=== PATIENT | female | born 1990 | race Caucasian/White ===

== ENCOUNTER 2024-03-06 17:51 | Emergency (ER) | payer MEDICAID, SELFPAY ==
[2024-03-06 17:51] VITALS: BP 136/61; PULSE 96; RESP 18; TEMP 37.1; O2SAT 98; BMI 23.3
[2024-03-06 18:20] LABS: Mucous, Urine 0 SEEN /hpf (<or=2+); Red Blood Cells-Urine 0 SEEN /hpf (0-5); White Blood Cells 0 SEEN /hpf (0-5)
[2024-03-06 18:23] LABS: Color, Urine Yellow (Yellow); Glucose, Dipstick Normal (Normal); Ketone-Dipstick Negative (Negative); Leukocyte Esterase-Dipstick Negative /ul (Negative); Nitrite-Dipstick Negative (Negative); Occult Blood-Urine Negative /ul (Negative); Protein-Dipstick Negative (Negative); Urine Bilirubin Dipstick Negative (Negative); Urine Clarity Clear (Clear); Urine Urobilinogen Normal (Normal)
--- NOTE | 2024-03-06 18:31 | EX.ED.DYSGE1 ---
HPI History of Present Illness Chief Complaint: Complaint Detail of Chief Complaint: Urinary symptoms Informant: patient Onset/Context/Timing Onset: Yesterday Context: Sudden Onset Timing: Intermittent Quality: Frequency, urgency and dysuria Location: Current Severity: Mild Maximum Severity: Severe Worsened by: Urinating Relieved by: Nothing Associated Symptoms Associated Symptoms: None Narrative Narrative: Patient is a 33-year-old G3, P1 Ab1 (spontaneous female who is approximately 4.5 months gestation who presents with dysuria, urgency and frequency. Patient complains of pain in the suprapubic area. She denies vomiting. Denies flank pain. She denies fever or chills. She has not had a urinary tract infection in 1 year. She states she gets significant yeast infection with penicillin. Prior similar symptoms: Yes Recent Illness/Hospitalization: No PFSH PFSH Medical History Second trimester Home Medications ?Medication ?Instructions ?Recorded ?Last Taken ?Type nitrofurantoin 100 mg PO Q12 #14 CAPSULES 03/06/24 Unknown Rx monohydrate/macrocrystals 100 mg capsule phenazopyridine 200 mg tablet 200 mg PO TID 6 doses #6 tabs 03/06/24 Unknown Rx (Pyridium) Allergy/AdvReac Type Severity Reaction Status Date / Time latex Allergy Intermediate Rash Verified 03/06/24 18:43 Penicillins (PCN) Allergy Intermediate Rash Verified 03/06/24 18:43 Social History Smoking Status: Light Smoker (<10/day) ROS ROS ED Constitutional Constitutional ED: Denies chills, fever(s), subjective or sweats Gastrointestinal Gastrointestinal: Reports abdominal pain; Denies diarrhea or vomiting Genitourinary Genitourinary ED: Reports dysuria, LMP (females 10-50) Details: Comment: (4-1/2 months gestation) and urinary frequency; Denies hematuria Musculoskeletal Musculoskeletal: Denies back pain Integumentary Denies rash Neurologic Neurologic: Denies weakness EXAM Physical Exam Const Vital Signs: 03/06/24 17:51 Temperature 98.8 F Temperature Source Oral Pulse Rate 96 Respiratory Rate 18 Blood Pressure 136/61 H Blood Pressure Mean 86 Pulse Ox 98 Oxygen Delivery Method Room Air Positive well nourished and well developed Constitutional Narrative: Patient appears uncomfortable. She was holding her hand against her abdomen in the suprapubic area when she was walking from triage to the examination room General Appearance ED: well developed; Negative for pallor HEENT Reports moist mucous membranes Eyes PERRL and EOMs intact bilaterally Resp normal respiratory effort and clear to auscultation bilaterally Cardio regular rate and regular rhythm GI normal to inspection, nondistended, normoactive bowel sounds, non-distended and no masses; Negative for non-tender or hepatosplenomegaly Palpation: soft and tender suprapubic Back/Spine no CVA tenderness Neuro oriented x3 and CN's II-XII intact bilaterally Sensorium / Orientation: alert Psych mental status grossly normal Skin no rashes or lesions noted, no wounds and skin turgor normal General Skin Exam: Negative for jaundice or pallor MDM MDM MDM Narrative Medical decision making narrative: Patient presents with urinary symptoms. She is going every 30 minutes. Because she is going frequently her urine may not appear infected. Lab Data Attestation: I reviewed the patient's lab results. Lab results narrative: Macro is unremarkable. Micro does not reveal pyuria however patient does have 2+ bacteria and is urinating every 30 minutes. Since she has urinary symptoms with 2+ bacteria and the specimen is not contaminated will send culture since she is and treat with Macrobid. Labs: Laboratory Results - last 24 hr 03/06/24 17:59 Urine Color Yellow Urine Clarity Clear Urine pH 6.0 Ur Specific [place] 1.020 Urine Protein Negative Urine Glucose (UA) Normal Urine Ketones Negative Urine Occult Blood Negative Urine Nitrite Negative Urine Bilirubin Negative Urine Urobilinogen Normal Ur Leukocyte Esterase Negative Urine RBC 0 SEEN Urine WBC 0 SEEN Ur Squamous Epith Cells 0-5 SEEN Ur Transition Epith Cell 0-5 SEEN Calcium Oxalate Crystal 1+ Amorphous Sediment 1+ Urine Bacteria 2+ Fine Granular Casts 0-5 SEEN Urine Mucus 0 SEEN Discharge Plan Triage Chief Complaint: Complaint ED Provider: Gilles Santiago Dx/Rx/DC Orders Clinical Impression: Acute cystitis during in second trimester, Elevated blood-pressure reading without diagnosis of hypertension Prescriptions: New nitrofurantoin monohyd/m-cryst 100 mg capsule 100 mg PO Q12 Qty: 14 0RF phenazopyridine [Pyridium] 200 mg tablet 200 mg PO TID Qty: 6 0RF Primary Care Provider: Care Physician,No Primary Referrals: Care Physician,No Primary [Primary Care Provider] - Doctor,Your [Non-Staff] - 3-5 Days Print Language: Romansh Disposition Disposition: Home, Self Care
[2024-03-06 18:35] LABS: Amorphous Sediment 1+; Bacteria 2+ /hpf (None Seen); Calcium Oxalate Crystals Ur 1+ /hpf (<or=2+); Fine Granular Cast- Urine 0-5 SEEN /lpf (0-5); Squamous Epithelial Cells - UA 0-5 SEEN /hpf (5-10); Transitional Epithelial - Ur 0-5 SEEN /hpf (0-5)
[2024-03-06] MEDS: Nitrofurantoin Macrocrystals 100 MG Capsule PO (18:40)
[2024-03-06] MEDS: Phenazopyridine 95 MG Tablet 190 MG PO (18:40)
[2024-03-06 19:01] VITALS: BP 136/68; PULSE 88; RESP 16; TEMP 36.8; O2SAT 99
== END 2024-03-06 19:02 | disposition home or self-care (01) ==
PROVIDERS: Emergency Provider Emergency Medicine; Visit Provider Emergency Medicine
DX: O23.12 Infections of bladder in pregnancy, second trimester (principal); N30.00 Acute cystitis without hematuria; O26.892 Other specified pregnancy related conditions, second trimester; R03.0 Elevated blood-pressure reading, without diagnosis of hypertension; O09.522 Supervision of elderly multigravida, second trimester; O99.332 Smoking (tobacco) complicating pregnancy, second trimester; F17.200 Nicotine dependence, unspecified, uncomplicated; Z3A.00 Weeks of gestation of pregnancy not specified
CPT/HCPCS: 81001; 87086; 87088; 99283

== ENCOUNTER 2024-10-16 13:33 | Emergency (ER) | payer MEDICAID, SELFPAY ==
[2024-10-16 13:34] VITALS: BP 134/87; PULSE 78; RESP 16; TEMP 37; O2SAT 98; BMI 25.9
--- NOTE | 2024-10-16 13:52 | EX.ED.DYSGE1 ---
HPI <NOE Bone - Last Filed: 10/16/24 15:45> History of Present Illness Chief Complaint: Bite Narrative Narrative: Patient presenting today due to concerns for a tick bite. She was applying lotion to her back this morning when she noticed an engorged tick to her right mid back. Her was able to remove the tick entirely. She reports that she does shower daily and would have noticed it but did not shower yesterday. She does go outside to smoke cigarettes and spends time outside, she also has dogs in her house that could have brought it in. She denies any fevers or chills, she reports that she feels well otherwise. She has no rash. PFSH <NOE Bone - Last Filed: 10/16/24 15:45> [facility] Medical History Second trimester Home Medications ?Medication ?Instructions ?Recorded ?Last Taken ?Type nitrofurantoin 100 mg PO Q12 #14 CAPSULES 03/06/24 Unknown Rx monohydrate/macrocrystals 100 mg capsule phenazopyridine 200 mg tablet 200 mg PO TID 6 doses #6 tabs 03/06/24 Unknown Rx (Pyridium) naproxen sodium 220 mg capsule 220 mg PO BID PRN 08/06/24 Unknown History (Aleve) Allergy/AdvReac Type Severity Reaction Status Date / Time latex Allergy Intermediate Rash Verified 10/16/24 13:34 Penicillins (PCN) Allergy Intermediate Rash Verified 10/16/24 13:34 Family History no significant family his Social History Smoking Status: Current every day smoker tobacco type: cigarettes ROS <NOE Bone - Last Filed: 10/16/24 15:45> ROS ED Constitutional Constitutional ED: Denies chills or fever(s) Cardiovascular Cardiovascular: Denies chest pain Respiratory/Chest Respiratory/Chest: Denies dyspnea Gastrointestinal Gastrointestinal: Denies abdominal pain, nausea or vomiting Musculoskeletal Musculoskeletal: Denies arthralgias or myalgias Integumentary Denies rash Neurologic Neurologic: Denies weakness EXAM <NOE Bone - Last Filed: 10/16/24 15:45> Physical Exam Const Vital Signs: 10/16/24 13:34 10/16/24 14:04 Temperature 98.6 F 98.6 F Temperature Source Oral Pulse Rate 78 90 Respiratory Rate 16 16 Blood Pressure 134/87 H 125/84 H Blood Pressure Mean 102 97 Pulse Ox 98 98 Oxygen Delivery Method Room Air Positive well nourished, well developed and no apparent distress General Appearance ED: well developed HEENT Reports normocephalic and head/scalp atraumatic Mouth ED: Yes moist mucous membranes normal Eyes PERRL and EOMs intact bilaterally Neck full ROM and supple Chest Wall inspection of chest normal Resp normal respiratory effort and clear to auscultation bilaterally Cardio regular rate and regular rhythm Back/Spine normal ROM and normal to inspection Extremity normal to inspection and full ROM Neuro moves all extremities, no focal motor deficits and no sensory deficits noted Sensorium / Orientation: awake and alert Psych mental status grossly normal and thought process normal Skin Skin Narrative: Small erythematous lesion to the right mid back where the tick bit her, no surrounding erythema, warmth, or signs of infection, no bull's-eye rash. <Ignacio Crews MD - Last Filed: 10/16/24 16:24> Physical Exam Const Vital Signs: 10/16/24 13:34 10/16/24 14:04 Temperature 98.6 F 98.6 F Temperature Source Oral Pulse Rate 78 90 Respiratory Rate 16 16 Blood Pressure 134/87 H 125/84 H Blood Pressure Mean 102 97 Pulse Ox 98 98 Oxygen Delivery Method Room Air MDM <NOE Bone - Last Filed: 10/16/24 15:45> [facility] Narrative Medical decision making narrative: Patient presenting today due to concerns for a tick bite. She found a tick engorged on her right mid back, her was able to fully remove this. She reports that she normally showers every day but did not shower yesterday because she had been busy running around. Today she was trying to put lotion on her back and she noticed the tick. She reports that she thinks she would have noticed it had she showered yesterday. She does spend a lot of time outside and also has pets that could have brought in a tick. I do feel she would benefit from a prophylactic dose of doxycycline according to the CDC recommendations for Lyme's prophylaxis. Recommended she follow-up with her PCP and she will be discharged home in stable condition. <Ignacio Crews MD - Last Filed: 10/16/24 16:24> [facility] Treatment and Re-Evaluation :: Dr. Crews: I have personally performed a face to face assessment of the patient and have reviewed the EVITA Note. I performed a substantive portion of the visit including all aspects of the following. My scherer findings include: History is tick bite to right upper back. First noticed this morning. No fevers or chills. No nausea or vomiting. Exam is afebrile. Vital signs noted. Nontoxic appearing. Positive tick bite without target lesion on right upper back. Medical Decision Making: Prophylactic doxycycline. It was doubtful that the tick had been on there longer than 72 hours as she states that she showers daily and would have noticed something before today. Follow-up primary care. Discharge. Other additions or changes: [None] Discharge Plan Triage Chief Complaint: Bite ED Midlevel Provider: Essence Matute ED Provider: Ignacio Crews Dx/Rx/DC Orders Clinical Impression: Tick bite Instructions: ED Tick Bite, Antibiotic Treatment Prescriptions: No Action naproxen sodium [Aleve] 220 mg capsule 220 mg PO BID PRN nitrofurantoin monohyd/m-cryst 100 mg capsule 100 mg PO Q12 Qty: 14 0RF phenazopyridine [Pyridium] 200 mg tablet 200 mg PO TID Qty: 6 0RF Primary Care Provider: Star Vang Referrals: Care Physician,No Primary [Non-Staff] - Activity Restrictions/Additional Instructions: Follow-up with your PCP and return for any other concerns. Print Language: Anguill[place] Disposition Disposition: Home, Self Care Discharge Date/Time: 10/16/24 14:17
[2024-10-16] MEDS: Doxycycline 100 MG CAPSULE 200 MG PO (13:55)
[2024-10-16 14:04] VITALS: BP 125/84; PULSE 90; RESP 16; TEMP 37; O2SAT 98
== END 2024-10-16 14:17 | disposition home or self-care (01) ==
PROVIDERS: Emergency Provider Emergency Medicine; PCP Physician Assistant; Visit Provider Emergency Medicine
DX: S20.461A Insect bite (nonvenomous) of right back wall of thorax, initial encounter (principal); W57.XXXA Bitten or stung by nonvenomous insect and other nonvenomous arthropods, initial encounter; F17.210 Nicotine dependence, cigarettes, uncomplicated
CPT/HCPCS: 99282